=== PATIENT | female | born 1980 | race Caucasian/White ===

== ENCOUNTER 2019-08-21 14:44 | Observation (INO) ==
[2019-08-21] MEDS ORDERED: Naloxone 0.4 MG/ML INJ IVP PRN (18:03)
[2019-08-21] MEDS ORDERED: Acetaminophen 325 MG TABLET PO PRN (18:03)
[2019-08-21] MEDS ORDERED: *HR* HYDROcodone/Acet 5/325 mg TABLET PO PRN (18:03)
[2019-08-21] MEDS: Ondansetron 4 MG/2 ML VIAL IVP PRN ×2 (18:13→21:00)
[2019-08-21] MEDS ORDERED: 0.9 % Sodium Chloride 1,000 ML IVC SCH (18:15)
[2019-08-21] MEDS ORDERED: Ketorolac 30 MG/ML VIAL IVP PRN (20:27)
[2019-08-21] MEDS ORDERED: methocarbamoL 750 MG TABLET PO PRN (21:00)
[2019-08-21] MEDS: *HR* OxyCODONE Immed Rel 5 MG TABLET PO PRN (21:15)
[2019-08-21] MEDS ORDERED: cloNIDine HCL 0.1 MG TABLET PO SCH (21:15)
[2019-08-21] MEDS ORDERED: rOPINIRole 0.25 MG TABLET PO SCH (21:15)
[2019-08-21] MEDS ORDERED: traZODone 50 MG TABLET PO SCH (21:15)
[2019-08-21] MEDS: Venlafaxine XR (24 HR) 150 MG CAP.ER.24H PO SCH (22:20)
[2019-08-22] MEDS ORDERED: 0.9 % Sodium Chloride 1,000 ML IVC SCH ×2 (01:00→16:50)
[2019-08-22] MEDS: *HR* OxyCODONE Immed Rel 5 MG TABLET PO PRN ×2 (03:43→10:19)
[2019-08-22] MEDS ORDERED: *HR* OxyCODONE Immed Rel 5 MG TABLET PO ONE (03:53)
[2019-08-22 05:21] LABS: Hematocrit 34.7 % (35.3-44.9); Hemoglobin 11.5 g/dL (11.5-15.4); Mean Corpuscular HGB Conc 33.1 g/dL (31.6-35.5); Mean Corpuscular Volume 90.6 fL (83.0-100.0); Mean Platelet Volume 9.6 fL (9.4-12.4); Platelet Count 282 K/mcL (140-400); Red Blood Count 3.83 M/mcL (3.82-4.97); Red Cell Distribution Width 12.9 % (11.5-14.5); White Blood Count 10.5 K/mcL (4.3-11.1)
[2019-08-22 05:39] LABS: BUN/Creatinine Ratio 6 (6-26); Blood Urea Nitrogen 5 mg/dL (6-20); Calcium 8.1 mg/dL (8.6-10.3); Carbon Dioxide 23 mEq/L (23-29); Chloride 111 mEq/L (98-107); Glucose 86 mg/dL (70-105); Magnesium 1.9 mg/dL (1.6-2.6); Osmolality,Calculated 285 (280-300); Potassium 3.9 mEq/L (3.5-5.1); Sodium 139 mEq/L (136-145); eGFR For African Americans > 60 (> 60); eGFR For Non-African Americans > 60 (> 60)
[2019-08-22] MEDS: Venlafaxine XR (24 HR) 150 MG CAP.ER.24H PO SCH (08:25)
[2019-08-22] MEDS ORDERED: Fluticasone Propionate Nasal 50 MCG/SPRAY BOTTLE NS SCH (09:00)
[2019-08-22] MEDS ORDERED: Pantoprazole 40 MG VIAL IVP ONE (10:41)
[2019-08-22] MEDS ORDERED: *HR* Succinylcholine 200 MG/10 ML VIAL IVP ONE (14:31)
[2019-08-22] MEDS ORDERED: CeFAZolin Syr 2,000MG/20 ML 2,000 MG/20 ML SYRINGE IVPB ONE ×2 (14:45→16:50)
[2019-08-22] MEDS ORDERED: *HR* Propofol 200 MG/20 ML VIAL IVP ONE (14:49)
[2019-08-22] MEDS ORDERED: *HR* FentaNYL (PF) 100 MCG/2 ML VIAL ONE (14:49)
[2019-08-22] MEDS ORDERED: Lidocaine -MPF 2% 2 ML VIAL ONE (14:51)
[2019-08-22] MEDS ORDERED: Dexamethasone 4 MG/ML VIAL ONE (14:51)
[2019-08-22] MEDS ORDERED: Ondansetron 4 MG/2 ML VIAL ONE (14:51)
[2019-08-22] MEDS ORDERED: Famotidine 20 MG/2 ML VIAL ONE (14:58)
[2019-08-22] MEDS ORDERED: *HR* Midazolam HCl 2 MG/2 ML VIAL ONE (14:58)
[2019-08-22] MEDS ORDERED: Acetaminophen IV 1,000 MG/100 ML INFUS..BTL ONE (14:58)
[2019-08-22] MEDS ORDERED: *HR* HYDROmorphone 2 MG TABLET PO PRN (15:35)
[2019-08-22] MEDS ORDERED: *HR* Promethazine 25 MG/ML VIAL IVP PRN (15:35)
[2019-08-22] MEDS ORDERED: *HR* Labetalol 20 MG/4 ML SYRINGE IVP PRN (15:35)
[2019-08-22] MEDS ORDERED: *HR* OxyCODONE Immed Rel 5 MG TABLET PO PRN ×2 (15:35→16:50)
[2019-08-22] MEDS ORDERED: *HR* HYDROmorphone PF 0.5 MG/0.5 ML SYRINGE IVP PRN (15:35)
[2019-08-22] MEDS ORDERED: Ondansetron 4 MG/2 ML VIAL IVP PRN (16:50)
[2019-08-22] MEDS ORDERED: Naloxone 0.4 MG/ML INJ IVP PRN (16:50)
[2019-08-22] MEDS ORDERED: methocarbamoL 750 MG TABLET PO PRN (16:50)
[2019-08-22] MEDS ORDERED: Ketorolac 30 MG/ML VIAL IVP PRN (16:50)
[2019-08-22] MEDS ORDERED: Acetaminophen 325 MG TABLET PO PRN (16:50)
[2019-08-22] MEDS ORDERED: *HR* HYDROcodone/Acet 5/325 mg TABLET PO PRN (16:50)
[2019-08-22] MEDS ORDERED: traZODone 50 MG TABLET PO SCH (21:00)
[2019-08-22] MEDS ORDERED: rOPINIRole 0.25 MG TABLET PO SCH (21:00)
[2019-08-22] MEDS ORDERED: Venlafaxine XR (24 HR) 150 MG CAP.ER.24H PO SCH (21:00)
[2019-08-22] MEDS ORDERED: cloNIDine HCL 0.1 MG TABLET PO SCH (21:00)
[2019-08-23] MEDS ORDERED: Fluticasone Propionate Nasal 50 MCG/SPRAY BOTTLE NS SCH (09:00)
== END 2019-08-22 19:11 | disposition home or self-care (01) ==
LOC: 3ANU 14:44 → EMEROOARM 14:44 → SUATTDRO 18:54 → 3ANU 18:56
PROVIDERS: ADMIT Family Medicine; ATTEND Family Medicine

== ENCOUNTER 2019-08-30 11:00 | Observation (INO) ==
[2019-08-30] MEDS ORDERED: 0.9 % Sodium Chloride 1,000 ML IVC ONE (14:54)
[2019-08-30] MEDS ORDERED: Acetaminophen 325 MG TABLET PO PRN (14:54)
[2019-08-30] MEDS ORDERED: Naloxone 0.4 MG/ML INJ IVP PRN (14:54)
[2019-08-30] MEDS ORDERED: cefTRIAXone 1,000 MG in Water for inj. (sterile) 10 ML IVP ONE (15:46)
[2019-08-30 16:18] LABS: Bilirubin,Urine Negative (Negative); Blood,Urine Large (Negative); Clarity,Urine Cloudy (Clear); Color,Urine Yellow (Yellow); Glucose,Urine (UA) Normal (Normal); Ketones,Urine Negative (Negative); Leukocyte Esterase,Urine Large (Negative); Nitrite,Urine Negative (Negative); PH,Urine 6.5 pH Units (5.0-8.0); Protein,Urine 30 mg/dL (Neg-Trace); Urobilinogen,Urine Normal (Normal)
[2019-08-30 16:20] LABS: Bacteria,Urine None Seen per hpf (None-Few); Hyaline Casts,Urine None Seen per lpf (None-Few); RBC,Urine 30-50 per hpf (0-3); Squamous Epithelial Cell,Urine Moderate per lpf (None-Few); WBC,Urine 30-50 per hpf (0-3)
[2019-08-30] MEDS: *HR* Heparin 5,000 UNIT/ML VIAL SQ SCH (18:15)
[2019-08-30] MEDS: traZODone 50 MG TABLET PO SCH (20:42)
[2019-08-30] MEDS: cloNIDine HCL 0.1 MG TABLET PO SCH (20:42)
[2019-08-30] MEDS: *HR* OxyCODONE Immed Rel 5 MG TABLET PO PRN (20:42)
[2019-08-30] MEDS: Venlafaxine XR (24 HR) 150 MG CAP.ER.24H PO SCH (20:42)
[2019-08-31] MEDS: *HR* HYDROcodone/Acet 5/325 mg TABLET PO PRN ×2 (02:54→11:02)
[2019-08-31] MEDS: *HR* Heparin 5,000 UNIT/ML VIAL SQ SCH ×2 (05:19→16:59)
[2019-08-31 07:17] LABS: Basophils % 0.4 %; Eosinophils # 0.7 K/mcL (0.0-0.6); Eosinophils % 7.2 %; Hematocrit 34.7 % (35.3-44.9); Hemoglobin 11.4 g/dL (11.5-15.4); Immature Granulocytes % 0.4 % (0-4); Lymphocytes % 19.7 %; Mean Corpuscular HGB Conc 32.9 g/dL (31.6-35.5); Mean Corpuscular Hemoglobin 30.2 pg (28.0-33.3); Mean Corpuscular Volume 91.8 fL (83.0-100.0); Mean Platelet Volume 9.6 fL (9.4-12.4); Monocytes # 0.5 K/mcL (0.0-1.3); Monocytes % 5.4 %; Neutrophils # 6.7 K/mcL (1.6-8.9); Platelet Count 312 K/mcL (140-400); Red Blood Count 3.78 M/mcL (3.82-4.97); Red Cell Distribution Width 13.5 % (11.5-14.5); Segmented Neutrophils % 66.9 %
[2019-08-31 07:43] LABS: BUN/Creatinine Ratio 9 (6-26); Blood Urea Nitrogen 7 mg/dL (6-20); Calcium 8.1 mg/dL (8.6-10.3); Carbon Dioxide 21 mEq/L (23-29); Chloride 110 mEq/L (98-107); Glucose 87 mg/dL (70-105); Magnesium 1.7 mg/dL (1.6-2.6); Osmolality,Calculated 283 (280-300); Phosphorous 1.9 mg/dL (2.7-4.5); Potassium 3.5 mEq/L (3.5-5.1); Sodium 138 mEq/L (136-145); eGFR For African Americans > 60 (> 60); eGFR For Non-African Americans > 60 (> 60)
[2019-08-31] MEDS: *HR* OxyCODONE Immed Rel 5 MG TABLET PO PRN ×2 (08:13→14:08)
[2019-08-31] MEDS: Venlafaxine XR (24 HR) 150 MG CAP.ER.24H PO SCH ×2 (08:15→21:49)
[2019-08-31] MEDS ORDERED: NORETHINDRONE AC ETH ESTRADIOL PO SCH (09:00)
[2019-08-31] MEDS ORDERED: Loratadine 10 MG TABLET PO SCH (09:00)
[2019-08-31] MEDS: Ondansetron 4 MG/2 ML VIAL IVP PRN ×2 (09:05→16:55)
[2019-08-31] MEDS ORDERED: cefTRIAXone 2,000 MG in Water for inj. (sterile) 20 ML IVP SCH (10:00)
[2019-08-31] MEDS: Ondansetron ODT 4 MG TAB.RAPDIS SL PRN (18:20)
[2019-08-31] MEDS: cloNIDine HCL 0.1 MG TABLET PO SCH (21:48)
[2019-08-31] MEDS: traZODone 50 MG TABLET PO SCH (21:49)
[2019-09-01] MEDS: Ondansetron ODT 4 MG TAB.RAPDIS SL PRN (02:49)
[2019-09-01] MEDS: *HR* HYDROcodone/Acet 5/325 mg TABLET PO PRN (02:49)
[2019-09-01] MEDS: *HR* Heparin 5,000 UNIT/ML VIAL SQ SCH (06:00)
[2019-09-01 07:42] VITALS: BP 103/72
== END 2019-09-01 08:47 | disposition home or self-care (01) ==
LOC: 3BNU → SUATTDRO 12:17
PROVIDERS: ADMIT Internal Medicine; ATTEND Internal Medicine